=== PATIENT | male | born 1950 | race Caucasian/White ===

== ENCOUNTER → 2023-08-20 | Outpatient (CLI) | payer BC | END | disposition home or self-care (01) | LOC: RESCLI 12:49 | PROVIDERS: ATTEND Internal Medicine | DX: I48.91 Unspecified atrial fibrillation (principal); J44.9 Chronic obstructive pulmonary disease, unspecified; E78.5 Hyperlipidemia, unspecified; E11.9 Type 2 diabetes mellitus without complications; I50.20 Unspecified systolic (congestive) heart failure; Z87.891 Personal history of nicotine dependence; Z98.890 Other specified postprocedural states; Z79.84 Long term (current) use of oral hypoglycemic drugs; Z79.01 Long term (current) use of anticoagulants; Z79.899 Other long term (current) drug therapy ==